=== PATIENT | female | born 1960 | race Hispanic/Latino ===

== ENCOUNTER 2022-12-05 10:16 | Emergency (ER) | payer OTHER ==
[~2022-12-05] VITALS: Ht 165.1 cm; Wt 85.7 kg
[2022-12-05 10:44] VITALS: BP 118/73; PULSE 64; RESP 20
[2022-12-05] MEDS ORDERED: FAMOTIDINE 20MG TAB PO ONE (13:30)
[2022-12-05] MEDS ORDERED: PREDNISONE 20 MG TABLET PO ONE (13:30)
[2022-12-05] MEDS ORDERED: IBUPROFEN 600 MG TABLET PO ONE (13:30)
== END 2022-12-05 14:23 | disposition home or self-care (01) ==
LOC: EDH 10:16
DX: S16.1XXA Strain of muscle, fascia and tendon at neck level, initial encounter (principal); E78.00 Pure hypercholesterolemia, unspecified; F41.9 Anxiety disorder, unspecified; Z90.49 Acquired absence of other specified parts of digestive tract; V89.2XXA Person injured in unspecified motor-vehicle accident, traffic, initial encounter; Y93.89 Activity, other specified; Y92.89 Other specified places as the place of occurrence of the external cause; Y99.8 Other external cause status
CPT/HCPCS: 72040; 72100; 73030; 73060

== ENCOUNTER 2024-04-26 16:19 | Inpatient (IN) | payer BC, OTHER ==
[~2024-04-26] VITALS: Ht 165.1 cm; Wt 80.1 kg
--- NOTE | 2024-04-26 16:51 | EKG ---
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
--- NOTE | 2024-04-26 17:00 | ERN ---
ED Note History of Present Illness Stated Complaint: DIARRHEA Chief Complaint: Abdominal Pain Time Seen by MD: 16:20 Time Seen by Midlevel: 16:20 Dictation: The patient is a 64-year-old female with a history of hyperlipidemia, depression, diabetes who presents to the emergency department with complaints of upper abdominal pain, nonbloody diarrhea times 17 times, nonbloody vomiting x2, chills, fevers onset last night. Patient denies any urinary discomfort. Denies any upper respiratory symptoms. Allergies: Coded Allergies: No Known Allergies (Unverified Allergy, Unknown, 12/05/22) Home Meds Reported Medications Sertraline HCl (Sertraline HCl) 100 Mg Tablet, 1 TAB PO HS for 30 Days, #30 TAB 0 Refills 04/26/24 Metformin HCl (Metformin HCl) 500 Mg Tablet, 1 TAB PO DAILY for 30 Days, #60 TAB 0 Refills 04/26/24 Atorvastatin Calcium (Atorvastatin Calcium) 20 Mg Tablet, 1 TAB PO DAILY for 30 Days, #30 TAB 0 Refills 04/26/24 Past Medical History Past Medical History: Depression, Diabetes-Type II, High Cholesterol, H ypertension Surgical History: Appendectomy, Hysterectomy, Cholecystectomy, Family History: Negative Social History: Negative, Lives with family History: Not Applicable RN Note Reviewed/Agreed w/PFSH: Yes Review of System Dictation Constitutional: Negative for fever,chills, and weight loss Eyes: Negative for injury, pain,redness, and discharge ENT: Negative for injury,pain or swelling Cardiovascular: Negative for chest pain, palpitations, and edema Respiratory: Negative for shortness of breath, cough, and wheezing, Abdomen/GI: Negative for and constipation positive for abdominal pain, nausea, vomiting, diarrhea, Back: Negative for injury and pain : Negative for injury, bleeding and discharge MS/Extremity: Negative for injury and deformity Skin: Negative for rash, and discoloration Neuro: Negative for headache, weakness, numbness, tingling, and seizure Psych: Negative for suicide ideation, homicidal ideation, and hallucinations Initial Vital Sign VS Vital Signs Date Time Temp Pulse Resp B/P (MAP) Pulse Ox O2 Delivery O2 Flow Rate FiO2 04/26/24 16:30 99.0 134 20 134/58 99 Room Air 0 04/26/24 17:08 21 Physical Exam Dictation Vital Signs reviewed General Appearance: Alert, oriented x 3, no acute distress, well developed, nourished. Head and Face: non-traumatic. Eyes: PERRL, pink conjunctivas, eyelid no trauma, anterior chamber with arcus senilis. Ears: Pinnas intact and no signs of trauma or erythema ear canals clear and no discharge TM no erythema Nose: No discharge, no bleeding. Oropharynx: Mouth normal, tongue pink. pharynx clear,no erythema, tonsils no exudates, no abscesses noted, mucous membrane moist Neck: Supple, non-tender, no thyromegaly, no masses, no JVD, no bruits Breast:Deferred Chest:No tenderness, no crepitus, no paradoxical movement, no retractions Lungs:Clear, well-ventilated, symmetric, no rales, no wheezing, no rhonchi, no stridor, good breath sounds bilaterally Heart: Regular rate, regular rhythm, no murmur, no gallops Vascular: no peripheral edema, Abdomen: Soft, positive bowel sounds, nondistended, no guarding, Upper abdominal tenderness, no rebound, no masses no hepatomegaly, no splenomegaly, no Hurt's sign, no hernias. Rectal: Deferred Genital: Deferred Neurological: Normal speech, motor function intact, sensory function intact Musculoskeletal: Neck nontender, full range of motion, back nontender, full range of motion, Extremities: nontender, full range of motion Skin: Color pink, dry, no turgor, no rash, no lacerations, no abrasions, no contusions. Lymphatic: Deferred Results (Laboratory/Radiology) Laboratory/Radiology Laboratory Tests Test 04/26/24 16:58 04/26/24 17:02 Urine Color YELLOW (YELLOW) Urine Appearance CLOUDY (CLEAR) H Urine pH 5.5 (5.0-8.0) Urine Specific [place] 1.024 (1.001-1.031) Urine Protein 20 mg/dL (NEGATIVE) H Urine Glucose (UA) NEGATIVE mg/dL (NEGATIVE) Urine Ketones NEGATIVE mg/dL (NEGATIVE) Urine Occult Blood NEGATIVE (NEGATIVE) Urine Nitrate 2+ (NEGATIVE) H Urine Bilirubin NEGATIVE mg/dL (NEGATIVE) Urine Urobilinogen 0.2 mg/dL (0.2-1.0) Urine Leukocyte Esterase 250 [place]/uL (NEGATIVE) H Urine RBC 6-10 /HPF (0-1) H Urine WBC 26-50 /HPF (0-1) H Urine Squamous Epithelial Cells MOD /HPF (0-2) Urine Other Crystals (Auto) 1 /HPF (None Seen) Urine Bacteria MANY /HPF (None Seen) Urine Hyaline Casts 6-10 /LPF (0-1 /LPF) H White Blood Count 11.8 K/uL (4.8-10.8) H Red Blood Count 5.44 MIL/uL (4.00-5.50) Hemoglobin 16.1 g/dL (12.0-16.0) H Hematocrit 49.0 % (36-48) H Mean Corpuscular Volume 90.1 fL (79-99) Mean Corpuscular Hemoglobin 29.6 pg (27.0-33.0) Mean Corpuscular Hemoglobin Concent 32.9 g/dL (32.0-36.0) Red Cell Distribution Width 13.2 % (11.0-15.5) Platelet Count 229 K/uL (130-400) Mean Platelet Volume 11.8 fL (7.5-10.5) H Immature Granulocyte % (Auto) 0.8 % (0-1) Neutrophils (%) (Auto) 83.2 % (40.0-77.0) H Lymphocytes (%) (Auto) 11.5 % (21.0-51.0) L Monocytes (%) (Auto) 3.4 % (3.0-13.0) Eosinophils (%) (Auto) 0.8 % (0.0-8.0) Basophils (%) (Auto) 0.3 % (0.0-5.0) Neutrophils # (Auto) 9.8 K/uL (1.8-7.7) H Lymphocytes # (Auto) 1.4 K/uL (1.0-4.8) Monocytes # (Auto) 0.4 K/uL (0.1-1.0) Eosinophils # (Auto) 0.10 K/uL (0.00-0.70) Basophils # (Auto) 0.03 K/uL (0.00-0.20) Absolute Immature Granulocyte (auto 0.09 K/uL (0-1) Nucleated Red Blood Cells 0.0 % (0.0-0.19) Sodium Level 136 mmol/L (136-145) Potassium Level 3.8 mmol/L (3.5-5.1) Chloride Level 100 mmol/L (101-111) L Carbon Dioxide Level 24 mmol/L (21-32) Blood Urea Nitrogen 21 mg/dL (7-18) H Creatinine 1.2 mg/dL (0.5-1.0) H Glomerular Filtration Rate Calc 51 mL/min (>90) Random Glucose 158 mg/dL (70-105) H Total Calcium 9.1 mg/dL (8.5-10.1) Magnesium Level 1.70 mg/dL (1.80-2.40) L Total Bilirubin 1.1 mg/dL (0.2-1.0) H Direct Bilirubin 0.2 mg/dL (0.0-0.3) Aspartate Amino Transf (AST/SGOT) 34 U/L (10-37) Alanine Aminotransferase (ALT/SGPT) 82 U/L (12-78) H Alkaline Phosphatase 132 U/L (50-136) Total Creatine Kinase 53 U/L (21-232) Troponin I High Sensitivity 12.4 ng/L (4-50) Total Protein 8.3 g/dL (6.0-8.3) Albumin 4.3 g/dL (3.5-5.0) Lipase 18 U/L (16-77) REASON: upper abd pain, vomiting diarrhea ORDERING PHYSICIAN: PEG HARRIS PROCEDURE: ABD PEL WO - CT ABDOMEN/PELVIS W/O CONTRAST CT ABDOMEN WITHOUT CONTRAST. CT PELVIS WITHOUT CONTRAST. INDICATION: Upper abdominal pain with vomiting and diarrhea TECHNIQUE: Routine transaxial imaging using 5 mm slice thickness through the abdomen and pelvis without the administration of IV contrast. Thin slice reconstructions are also provided. Coronal and sagittal reformatted images acquired for interpretation. CT was performed with one or more of the following dose reduction techniques: Automated exposure control, adjustment of the mA and/or kV according to patient size, or use of iterative reconstruction technique. COMPARISON: None FINDINGS: ON NONCONTRAST IMAGING: ABDOMEN: Heart size is normal. Visible lung bases are clear. No abnormal renal calcifications, hydronephrosis, perinephric inflammation, or proximal hydroureter detected. The liver is enlarged and smooth in contour without biliary duct dilation. Diffuse low attenuation of the liver parenchyma suggests fatty change. The spleen is normal in size and attenuation. The gallbladder is absent. The pancreas appears normal without pancreatic duct dilation. The adrenal glands appear normal. No significant abdominal, retrocrural or retroperitoneal adenopathy noted. No evidence for intra-abdominal free air or organized fluid collection. No aortic aneurysmal dilation identified. PELVIS: No abnormal calcifications within the urinary bladder or distal ureters. No evidence for free air or organized pelvic fluid collection. No significant pelvic adenopathy detected. Several diverticula along the distal colon. Extensive small and large bowel liquid contents. Terminal ileum appears unremarkable. The appendix is absent. Uterus is absent. Visible osseous structures are intact. IMPRESSION: Probable mild enterocolitis with extensive small and large bowel liquid contents. Distal colonic diverticulosis. Enlarged fatty liver. Labs Reviewed?: Yes EKG: (+) rhythm (Sinus tachycardia) EKG Comment: Date:04/26/2024 Time:1644 Ventricular rate:118 TN interval:148 QRS duration:67 QT/QTc:303 EKG interpretation: Sinus tachycardia Reviewed by ED Attending no STEMI ED Course ED Course Orders Procedure Category Date Status Time Cbc With Differential LAB 04/26/24 Complete 16:43 Urinalysis Profile LAB 04/26/24 Complete 16:43 0.9%Nacl 1000ml (Ns PHA 04/26/24 Complete 1000ml) 17:00 Morphine 4mg Syg PHA 04/26/24 Complete (Morphine 4mg Syg) 17:00 Ondansetron 4mg Inj PHA 04/26/24 Complete (Zofran 4mg Inj) 17:00 Pantoprazole 40mg Inj PHA 04/26/24 Complete (Protonix 40mg Inj 17:00 Lipase LAB 04/26/24 Complete 16:43 Basic Metabolic Panel LAB 04/26/24 Complete 16:43 Hepatic Function Panel LAB 04/26/24 Complete 16:43 12 Lead Ekg Tracing- EKG 04/26/24 Complete Technical 16:43 Cardiac Panel LAB 04/26/24 Complete 16:43 Magnesium LAB 04/26/24 Complete 16:43 Ct Abdomen/Pelvis W/O CT 04/26/24 Resulted Contrast 17:52 Magnesium Oxide PHA 04/26/24 Complete (Mag-Ox) 18:00 Culture Urine WALLY 04/26/24 In Process 17:56 Ceftriaxone 1g Vial PHA 04/26/24 In Process (Rocephine 1g Inj) 18:30 Ondansetron 4mg Inj PHA 04/26/24 In Process (Zofran 4mg Inj) 19:30 Edm Admit Bridge Order ADM 04/26/24 Transmitted 20:27 Admit Orders ADM 04/26/24 Transmitted 20:53 Admit Orders ADM 04/26/24 Transmitted 21:03 Keep Patient Npo CPOE 04/26/24 Transmitted 21:43 Basic Metabolic Panel LAB 04/27/24 Verified 04:00 Cbc With Differential LAB 04/27/24 Verified 04:00 Magnesium LAB 04/27/24 Verified 04:00 Phosphorus LAB 04/27/24 Verified 04:00 Culture Urine WALLY 04/26/24 Logged 21:43 Activity: Ad Rosalinda CPOE 04/26/24 Transmitted 21:43 Apply Knee High Teds CPOE 04/26/24 Transmitted 21:43 Apply Scds CPOE 04/26/24 Transmitted 21:43 Condition: CPOE 04/26/24 Transmitted 21:43 Daily Weights CPOE 04/26/24 Transmitted 21:43 I&O Q Shift CPOE 04/26/24 Transmitted 21:43 Nurse To Enter Home CPOE 04/26/24 Transmitted Medication 21:43 Oxygen By Nc/Pulse Ox CPOE 04/26/24 Transmitted 21:43 Vital Signs(Adult CPOE 04/26/24 Transmitted Hospitalist) 21:43 Urine Creatinine LAB 04/26/24 Logged Random 21:43 Urine Sodium,Random LAB 04/26/24 Logged 21:43 Osmolality Urine LAB 04/26/24 Logged 21:43 Acetaminophen 325 Tab PHA 04/26/24 In Process (Tylenol 325mg Tab 22:00 Heparin 5,000 Unit PHA 04/27/24 In Process Vial (Heparin 5,000 U 09:00 Hydralazine 20mg Inj PHA 04/26/24 In Process (Apresoline 20mg In 22:00 Lactated Ringers PHA 04/26/24 In Process 1000ml (Lactated 22:00 Pantoprazole 40mg Inj PHA 04/27/24 In Process (Protonix 40mg Inj 09:00 Acetaminophen 650mg PHA 04/26/24 In Process Supp (Tylenol 650mg 22:00 Stool Panel Gi By Pcr LAB 04/26/24 Logged 21:43 Magnesium 2gm Premix PHA 04/26/24 In Process 50ml (Magnesium 2gm 22:00 Morphine 2mg Syg PHA 04/26/24 In Process (Morphine 2mg Syg) 22:00 Current Medications Medications (Trade) Dose Ordered Sig/Jj Route PRN Reason Start Time Stop Time Status Last Admin Dose Admin Ceftriaxone Sodium (ROCEphine 1G INJ) 1 gm ONCE IVPB 04/26/24 18:30 04/26/24 22:30 04/26/24 19:21 Magnesium Oxide (Mag-Ox) 400 mg ONCE PO 04/26/24 18:00 04/26/24 22:00 DC 04/26/24 19:21 Morphine Sulfate (morPHINE 4MG SYG) 4 mg ONCE IVP 04/26/24 17:00 04/26/24 21:00 DC 04/26/24 17:36 Ondansetron HCl (zoFRAN 4MG INJ) 4 mg ONCE IVP 04/26/24 17:00 04/26/24 21:00 DC 04/26/24 17:36 Ondansetron HCl (zoFRAN 4MG INJ) 4 mg ONCE IVP 04/26/24 19:30 04/26/24 22:30 04/26/24 19:37 Pantoprazole Sodium (PROTonix 40MG INJ) 40 mg ONCE IVP 04/26/24 17:00 04/26/24 21:00 DC 04/26/24 17:36 Sodium Chloride 1,000 ml @ 0 mls/hr ONCE IV 04/26/24 17:00 04/26/24 21:00 DC 04/26/24 17:36 Vital Signs Date Time Temp Pulse Resp B/P (MAP) Pulse Ox O2 Delivery O2 Flow Rate FiO2 04/26/24 17:08 99.0 130 16 130/56 98 Room Air* 0 21 04/26/24 16:30 99.0 134 20 134/58 99 Room Air 0 Medical Decision Making MDM MDM: The patient is a 64-year-old female with a history of hyperlipidemia, depression, diabetes who presents to the emergency department with complaints of upper abdominal pain, nonbloody diarrhea times 17 times, nonbloody vomiting x2, chills, fevers onset last night. Patient denies any urinary discomfort. Denies any upper respiratory symptoms. CBC showed mild leukocytosis, no anemia, chemistry showed hypochloremia, GFR 54, hypomagnesemia, negative lipase, urinalysis positive for UTI. Patient treated antibiotics. CT abdomen showed mild enterocolitis, patient continues with a nausea and vomiting and diarrhea. We will be admitted for urinary tract infecti on in hydration. Differential diagnosis: Gastroenteritis, dehydration, electrolyte imbalance, diverticulitis, bowel obstruction Comorbidities: Hyperlipidemia, diabetes, appendectomy, cholecystectomy Tests considered and not ordered secondary to shared decision making include: none Previous outside records reviewed: none Risk of complication and/or morbidity or mortality of patient management: The patient meets criteria for admission. Need for emergency major/minor surgery: No There are no social concerns with this patient. I independently interpreted the tests I ordered (labs, urinalysis, etc.). I discussed the case with the hospitalist for admission.Femi CONNOR who accepts admission I discussed the case with the following specialists: none. Historian: pateint. I independently interpreted imaging studies and EKGs that I ordered (US, CT, XR, EKG, etc.). External chart review: none. Medical management and examination interpretation discussions were had by me with other qualified healthcare professionals as indicated for the patient's care. DX & DISP Disposition: Inpatient Decision to Admit Date: Apr 26, 2024 Decision to Admit Time: 20:53 Departure Impression: Primary Impression: Enterocolitis Additional Impressions: UTI (urinary tract infection), Dehydration, Acute kidney injury, Nausea and vomiting, Diarrhea, Hypomagnesemia Condition: Stable Referrals: TIEN CHONG MD (PCP) I have reviewed the case, and I agree with, Diagnosis and Plan PEG HARRISP Apr 26, 2024 17:00
[2024-04-26 17:27] LABS: BASOPHILS # (AUTO) 0.03 K/uL (0.00-0.20); BASOPHILS % (AUTO) 0.3 % (0.0-5.0); EOSINOPHILS % (AUTO) 0.8 % (0.0-8.0); IMMATURE GRANULOCYTE ABSOLUTE 0.09 K/uL (0-1); LYMPHOCYTES # (AUTO) 1.4 K/uL (1.0-4.8); LYMPHOCYTES % (AUTO) 11.5 % (21.0-51.0); MEAN CORPUSCULAR HEMOGLOBIN 29.6 pg (27.0-33.0); MEAN CORPUSCULAR HGB CONC 32.9 g/dL (32.0-36.0); MEAN CORPUSCULAR VOLUME 90.1 fL (79-99); MONOCYTES # (AUTO) 0.4 K/uL (0.1-1.0); MONOCYTES % (AUTO) 3.4 % (3.0-13.0); NEUTROPHILS # (AUTO) 9.8 K/uL (1.8-7.7); NEUTROPHILS % (AUTO) 83.2 % (40.0-77.0); PLATELET COUNT (AUTO) 229 K/uL (130-400); RED BLOOD CELL COUNT(AUTO) 5.44 MIL/uL (4.00-5.50); RED CELL DISTRIBUTION WIDTH 13.2 % (11.0-15.5); WHITE BLOOD COUNT (AUTO) 11.8 K/uL (4.8-10.8)
[2024-04-26] MEDS: 0.9%NACL 1000ML 1,000 ML IV SCH (17:36)
[2024-04-26] MEDS: PANTOPrazole 40 MG/VIAL IVP SCH (17:36)
[2024-04-26] MEDS: morPHINE 4 MG SYG IVP SCH (17:36)
[2024-04-26] MEDS: ondanSETRON 4MG INJ IVP SCH ×2 (17:36→19:37)
[2024-04-26 17:40] LABS: CREATININE 1.2 mg/dL (0.5-1.0); POTASSIUM 3.8 mmol/L (3.5-5.1)
[2024-04-26 17:47] LABS: ALBUMIN 4.3 g/dL (3.5-5.0); BILIRUBIN,DIRECT 0.2 mg/dL (0.0-0.3); BILIRUBIN,TOTAL 1.1 mg/dL (0.2-1.0); MAGNESIUM 1.7 mg/dL (1.80-2.40); TOTAL PROTEIN, SERUM 8.3 g/dL (6.0-8.3)
[2024-04-26 17:52] LABS: APPEARANCE,URINE CLOUDY (CLEAR); BILIRUBIN,URINE NEGATIVE (NEGATIVE); COLOR,URINE YELLOW (YELLOW); GLUCOSE, URINE (UA) NEGATIVE (NEGATIVE); KETONES,URINE NEGATIVE (NEGATIVE); LEUKOCYTE ESTERASE ,URINE 250 Leu/uL (NEGATIVE); NITRATE,URINE 2+ (NEGATIVE); OCCULT BLOOD,URINE NEGATIVE (NEGATIVE); PH,URINE 5.5 (5.0-8.0); PROTEIN,URINE 20 mg/dL (NEGATIVE); UROBILINOGEN,URINE 0.2 mg/dL (0.2-1.0)
[2024-04-26 17:55] LABS: ADD UA MICROSCOPIC YES
[2024-04-26 18:02] LABS: BACTERIA,URINE MANY /HPF (None Seen); MUCUS,URINE MOD LPF (None Seen); SQUAMOUS EPITHELIAL CELL,UR MOD /HPF (0-2); UNCLASSIFIED CRYSTAL 1 /HPF (None Seen); WBC,URINE 26-50 /HPF (0-1)
--- NOTE | 2024-04-26 18:42 | HMCIMG ---
CT ABDOMEN WITHOUT CONTRAST. CT PELVIS WITHOUT CONTRAST. INDICATION: Upper abdominal pain with vomiting and diarrhea TECHNIQUE: Routine transaxial imaging using 5 mm slice thickness through the abdomen and pelvis without the administration of IV contrast. Thin slice reconstructions are also provided. Coronal and sagittal reformatted images acquired for interpretation. CT was performed with one or more of the following dose reduction techniques: Automated exposure control, adjustment of the mA and/or kV according to patient size, or use of iterative reconstruction technique. COMPARISON: None FINDINGS: ON NONCONTRAST IMAGING: ABDOMEN: Heart size is normal. Visible lung bases are clear. No abnormal renal calcifications, hydronephrosis, perinephric inflammation, or proximal hydroureter detected. The liver is enlarged and smooth in contour without biliary duct dilation. Diffuse low attenuation of the liver parenchyma suggests fatty change. The spleen is normal in size and attenuation. The gallbladder is absent. The pancreas appears normal without pancreatic duct dilation. The adrenal glands appear normal. No significant abdominal, retrocrural or retroperitoneal adenopathy noted. No evidence for intra-abdominal free air or organized fluid collection. No aortic aneurysmal dilation identified. PELVIS: No abnormal calcifications within the urinary bladder or distal ureters. No evidence for free air or organized pelvic fluid collection. No significant pelvic adenopathy detected. Several diverticula along the distal colon. Extensive small and large bowel liquid contents. Terminal ileum appears unremarkable. The appendix is absent. Uterus is absent. Visible osseous structures are intact. IMPRESSION: Probable mild enterocolitis with extensive small and large bowel liquid contents. Distal colonic diverticulosis. Enlarged fatty liver.
[2024-04-26] MEDS: cefTRIAXone 1G VIAL IVPB SCH (19:21)
[2024-04-26] MEDS: MAGNESIUM OXIDE 400 MG TABLET PO SCH (19:21)
--- NOTE | 2024-04-26 20:24 | NUR ---
PATIENT GIVEN WATER PO CHALLENGE, TOLERATED WELL
[2024-04-26] MEDS ORDERED: ATOR20TA65 PO (21:01)
[2024-04-26] MEDS ORDERED: METF-444 PO (21:01)
[2024-04-26] MEDS ORDERED: SERT-440 PO (21:01)
--- NOTE | 2024-04-26 21:06 | HP ---
History of Present Illness Reason for Visit: diarrhea History of Present Illness Ms. Howard is a 64-year-old female that was seen and examined today on 04/26/2024. Patient is a good historian of personal health Patient states that she came to the emergency department with a chief complaint of diarrhea. Onset was today at 6:00 a.m.. Location is to rectum. Duration is on and off. Character is described as watery. Patient reports 22 episodes of d iarrhea. There was no alleviating factors. Symptoms are aggravated with eating and drinking. Patient reports associated nausea and vomiting x2 episodes. Today in the emergency department CBC unremarkable, magnesium 1.7, creatinine 1.2, BUN 21, urinalysis positive for leukocyte esterase, WBCs 20 6-50 per high- powered microscopy field. CT suggestive of enterocolitis. Past Medical History ADDITIONAL PAST MEDICAL HISTORY: [Denies] SOCIAL HISTORY: [Negative for smoking, alcohol use, drug use. Patient lives alone. Patient is typically independent of all her ADLs. Patient has good access to health care through her insurance. Patient is currently unemployed. Patient denies difficulty pain her bills.] SURGICAL HISTORY: [Cholecystectomy, appendectomy, hysterectomy, section x1,] Review of Systems General: No Fever, No Chills, No Night Sweats, No Fatigue, No Malaise, No Appetite, No Other HEENT: No Head Aches, No Visual Changes, No Eye Pain, No Ear Pain, No Dysphasia, No Sinus Congestion, No Post Nasal Drip, No Sore Throat, No Other Pulmonary: No Dyspnea, No Cough, No Pleuritic Chest Pain, No Other Cardiovascular: No: Chest Pain, Palpitations, Orthopnea, Paroxysmal Noc. Dyspnea, Edema, Lt Headedness, Other Gastrointestinal: Nausea, Vomiting, Diarrhea; No: Abdominal Pain, Constipation, Melena, Hematochezia, Other Genitourinary: No Dysuria, No Frequency, No Incontinence, No Hematuria, No Retention, No Other Musculoskeletal: No: other, neck pain, shoulder pain, arm pain, back pain, hand pain, leg pain, foot pain Skin: No Urticaria, No Rash, No Other Neurological: No: Weakness, Numbness, Incoordination, Change in speech, Confusion, Seizures, Other Allergies: Coded Allergies: No Known Allergies (Unverified Allergy, Unknown, 12/05/22) Scheduled Atorvastatin Calcium (Atorvastatin Calcium), 1 TAB PO DAILY, (Reported) Metformin HCl (Metformin HCl), 1 TAB PO DAILY, (Reported) Sertraline HCl (Sertraline HCl), 1 TAB PO HS, (Reported) Exam Vital Signs Vital Signs Date Time Temp Pulse Resp B/P (MAP) Pulse Ox O2 Delivery O2 Flow Rate FiO2 04/26/24 17:08 99.0 130 16 130/56 98 Room Air* 0 21 General Appearance: Alert, Oriented X3, Cooperative, No acute distress HEENT: Atraumatic, EOMI Respiratory: Clear to auscultation, Normal air movement, NL respiratory effort Cardiovascular: Regular rate, Regular rhythm, Normal S1, Normal S2 Abdominal: Normal bowel sounds, Soft, No tenderness Extremities: No edema Skin: No significant lesion Neuro: Normal speech, Strength at 5/5 X4 ext, Sensation intact, Cranial nerves 3-12 NL Psych/Mental Status: Mental status NL, Mood NL, Thoughts/Content NL Assessment/Plan ASSESSMENT: [ Enterocolitis, POA, by CT on 04/26/2024 Urinary tract infection, POA Hypomagnesemia, POA PEPE versus CKD, POA PLAN: [ Admit patient to medical floor as inpatient status. Keep patient NPO. Consider advancing diet tomorrow once patient is no longer nauseated. As-needed antiemetic, Zofran. IV fluid maintenance therapy lactated Ringer's at 125 mL/HR Check urine culture, follow up with the results Empiric antibiotic therapy with Rocephin Replace magnesium per hospital protocol Calculate FENA Check urine sodium, creatinine, osmolality Avoid nephrotoxic agents when possible Renally dose all medications when possible Consider consulting Nephrology service if any worsening renal function or evidence of ATN. Monitor patient's labs. Weight patient daily. Monitor intake and output. GI prophylaxis, Protonix DVT prophylaxis, heparin ADVANCED CARE PLANNING 1. Which of the following were discussed? Hospice Care - Yes Therapeutic options - Yes Advance Directives - Yes -patient states he does not have any advance directives in place at this time, however patient states her daughter Laurie can make decisions for her if she becomes unable. Other discussions - patient wishes to remain a full code at this time 2. Discussed with who? Patient 3. Voluntary nature of this service was explained to the patient? Yes 4. Amount of time spent - ___ 16 minutes ____ 5. Reviewed by Physician? (if this service was performed by NPP) Yes This document was generated in part using voice recognition software, occasional wrong word or sound alike substitutions may have occurred due to the inherent limitations of voice recognition software. Read the chart carefully and recognize using context, where the substitutions have occurred. Although every effort was made to edit the content, body line finisher and typing errors may occur ATTESTATION BY PHYSICIAN I have seen and examined the patient. I reviewed the documentation, medical decision making, and treatment plan as noted by the mid-level provider above. I agree with the findings and plan of care. [facility] Apr 26, 2024 21:06
[2024-04-26] MEDS ORDERED: hydrALAZine 20MG/ML VIAL IV PRN (22:00)
[2024-04-26] MEDS ORDERED: acetaMINOPHEN 325 MG TAB PO PRN (22:00)
[2024-04-26] MEDS ORDERED: acetaMINOPHEN 650 MG SUPPOSITORY RC PRN (22:00)
[2024-04-26] MEDS ORDERED: morPHINE 2 MG SYG IVP PRN (22:00)
[2024-04-26] MEDS: LACTATED RINGERS 1000ML 1,000 ML IV SCH (22:01)
[2024-04-26 22:34] LABS: CREATININE,URINE RANDOM 227.83 mg/dL (30-135)
[2024-04-26 23:00] VITALS: BP 122/56; PULSE 99; RESP 18; TEMP 98.5
--- NOTE | 2024-04-26 23:29 | NUR ---
REPORT GIVEN TO NURSE KASPER
[2024-04-26 23:50] VITALS: BP 115/53; PULSE 70; RESP 20; TEMP 98
[2024-04-27 04:00] VITALS: BP 112/52; PULSE 68; RESP 20; TEMP 98.3
[2024-04-27 08:00] VITALS: O2SAT 99
[2024-04-27 08:06] VITALS: BP 111/54; PULSE 78; RESP 18; TEMP 98.3
[2024-04-27 08:19] LABS: BASOPHILS # (AUTO) 0.01 K/uL (0.00-0.20); BASOPHILS % (AUTO) 0.2 % (0.0-5.0); EOSINOPHILS % (AUTO) 1.6 % (0.0-8.0); HEMATOCRIT 40.9 % (36-48); IMMATURE GRANULOCYTE ABSOLUTE 0.04 K/uL (0-1); MEAN CORPUSCULAR HEMOGLOBIN 29.2 pg (27.0-33.0); MEAN CORPUSCULAR HGB CONC 32.5 g/dL (32.0-36.0); MEAN CORPUSCULAR VOLUME 89.9 fL (79-99); MONOCYTES # (AUTO) 0.3 K/uL (0.1-1.0); MONOCYTES % (AUTO) 5.1 % (3.0-13.0); NEUTROPHILS # (AUTO) 4.9 K/uL (1.8-7.7); NEUTROPHILS % (AUTO) 76.5 % (40.0-77.0); PLATELET COUNT (AUTO) 141 K/uL (130-400); RED BLOOD CELL COUNT(AUTO) 4.55 MIL/uL (4.00-5.50); RED CELL DISTRIBUTION WIDTH 13.2 % (11.0-15.5); WHITE BLOOD COUNT (AUTO) 6.4 K/uL (4.8-10.8)
[2024-04-27 08:49] LABS: CREATININE 1.1 mg/dL (0.5-1.0); MAGNESIUM 1.9 mg/dL (1.80-2.40); POTASSIUM 4.3 mmol/L (3.5-5.1)
--- NOTE | 2024-04-27 09:13 | PN ---
[facility] PROGRESS NOTE Date of Service: Apr 27, 2024 Time of Service: 09:06 SUBJECTIVE: [ ] This is a 64-year-old female that presents in ER with chief complaints of diarrhea was admitted on 04/26/2024. This morning she reports she continues we will collect stool PCR. No fevers no chills continues on IV fluids. REVIEW OF SYSTEMS CONSTITUTIONAL: Denies fevers, chills, or night sweats. No unintentional weight loss reported. NEUROLOGICAL: Denies headache, amaurosis fugax, motor weakness, sensory deficit, vertigo/spinning sensation, gait abnormalities, or tremors. ENT: No hearing loss, otalgia, otorrhea, rhinitis, rhinorrhea, hoarseness, or sore throat. CARDIOVASCULAR: Denies any exertional angina, dyspnea on exertion, orthopnea, paroxysmal nocturnal dyspnea, palpitations, life-threatening arrhythmias, claudication. PULMONARY: Denies any shortness of breath, cough, phlegm/sputum, hemoptysis, pleuritic chest pain. SLEEP: Denies morning headaches, daytime somnolence or napping. Denies difficulty falling asleep, staying asleep, waking from sleep. Denies knowledge of snoring. GASTROINTESTINAL: Denies any type of dysphagia to either liquids or solids. Denies nausea, vomiting, pyrosis, early satiety, abdominal pain, diarrhea, constipation, or changes in stool consistency or caliber. Denies coffee-ground emesis, hematemesis, hematochezia, or melanotic stools. GENITOURINARY: Denies frequency, urgency, nocturia, hematuria or incontinence (Storage/Irritative symptoms.) Low urinary stream, straining to void, urinary intermittency or hesitancy, splitting of the voiding stream, terminal dribbling. ENDOCRINOLOGIC: Denies polyuria, polydipsia, polyphagia or heat/cold intolerances. HEMATOLOGIC: Denies thrombophilia/previous clots, or coagulopathy/bleeding disorders. ONCOLOGIC: Denies personal history of malignancy. DERMATOLOGIC: Denies rashes or pruritus. PSYCHIATRIC: Denies any suicidal or homicidal ideation. Denies hallucinations. PHYSICAL EXAM GENERAL APPEARANCE: The patient is awake, alert, and oriented, in no acute cardiopulmonary distress. NEUROLOGICAL: Cranial nerves II-XII grossly intact. Motor is 5/5 in bilateral upper and lower extremities proximal to distal. No sensory deficits. HEENT: Face is symmetric. Pupils are equal and reactive. Extraocular movements are intact. NECK: Supple. No JVD. No thyromegaly. No submental, submandibular, pre-/postauricular, occipital or supraclavicular lymphadenopathy. CHEST: Normal chest expansion. No Telemetry. LUNGS: Absence of any rales, rhonchi or any wheezing. CARDIOVASCULAR: Regular. S1 and S2 normal. No appreciable rubs, murmurs or gallops. ABDOMEN: Soft, nontender, and nondistended. There is no rebound, voluntary guarding, or rigidity. : Deferred. No Traore. EXTREMITIES: Non-edematous and not cyanotic. No clubbing. Good capillary refill. SKIN: No skin breakdown. Vital Signs (last 8hr) Date Time Temp Pulse Resp B/P (MAP) Pulse Ox O2 Delivery O2 Flow Rate FiO2 04/27/24 08:06 98.2 78 18 111/54 98 Room Air 04/27/24 04:00 98.2 68 20 112/52 98 Nasal Cannula LABS: Laboratory: Test 04/27/24 08:03 04/26/24 17:02 04/26/24 16:58 Range/Units White Blood Count 6.4 # 4.8-10.8 K/uL Red Blood Count 4.55 4.00-5.50 MIL/uL Hemoglobin 13.3 12.0-16.0 g/dL Hematocrit 40.9 36-48 % Mean Corpuscular Volume 89.9 79-99 fL Mean Corpuscular Hemoglobin 29.2 27.0-33.0 pg Mean Corpuscular Hemoglobin Concent 32.5 32.0-36.0 g/dL Red Cell Distribution Width 13.2 11.0-15.5 % Platelet Count 141 # 130-400 K/uL Mean Platelet Volume 12.0 H 7.5-10.5 fL Immature Granulocyte % (Auto) 0.6 0-1 % Neutrophils (%) (Auto) 76.5 40.0-77.0 % Lymphocytes (%) (Auto) 16.0 L 21.0-51.0 % Monocytes (%) (Auto) 5.1 3.0-13.0 % Eosinophils (%) (Auto) 1.6 0.0-8.0 % Basophils (%) (Auto) 0.2 0.0-5.0 % Neutrophils # (Auto) 4.9 1.8-7.7 K/uL Lymphocytes # (Auto) 1.0 1.0-4.8 K/uL Monocytes # (Auto) 0.3 0.1-1.0 K/uL Eosinophils # (Auto) 0.10 0.00-0.70 K/uL Basophils # (Auto) 0.01 0.00-0.20 K/uL Absolute Immature Granulocyte (auto 0.04 0-1 K/uL Nucleated Red Blood Cells 0.0 0.0-0.19 % Sodium Level 136 136-145 mmol/L Potassium Level 4.3 3.5-5.1 mmol/L Chloride Level 105 101-111 mmol/L Carbon Dioxide Level 27 21-32 mmol/L Blood Urea Nitrogen 23 H 7-18 mg/dL Creatinine 1.1 H 0.5-1.0 mg/dL Glomerular Filtration Rate Calc 56 >90 mL/min Random Glucose 139 H 70-105 mg/dL Total Calcium 8.5 8.5-10.1 mg/dL Phosphorus Level 3.0 2.5-4.9 mg/dL Magnesium Level 1.90 1.80-2.40 mg/dL Total Bilirubin 1.1 H 0.2-1.0 mg/dL Direct Bilirubin 0.2 0.0-0.3 mg/dL Aspartate Amino Transf (AST/SGOT) 34 10-37 U/L Alanine Aminotransferase (ALT/SGPT) 82 H 12-78 U/L Alkaline Phosphatase 132 50-136 U/L Total Creatine Kinase 53 21-232 U/L Troponin I High Sensitivity 12.4 4-50 ng/L Total Protein 8.3 6.0-8.3 g/dL Albumin 4.3 3.5-5.0 g/dL Lipase 18 16-77 U/L Urine Color YELLOW YELLOW Urine Appearance CLOUDY H CLEAR Urine pH 5.5 5.0-8.0 Urine Specific [place] 1.024 1.001-1.031 Urine Protein 20 H NEGATIVE mg/dL Urine Glucose (UA) NEGATIVE NEGATIVE mg/dL Urine Ketones NEGATIVE NEGATIVE mg/dL Urine Occult Blood NEGATIVE NEGATIVE Urine Nitrate 2+ H NEGATIVE Urine Bilirubin NEGATIVE NEGATIVE mg/dL Urine Urobilinogen 0.2 0.2-1.0 mg/dL Urine Leukocyte Esterase 250 H NEGATIVE Kwaku/uL Urine RBC 6-10 H 0-1 /HPF Urine WBC 26-50 H 0-1 /HPF Urine Squamous Epithelial Cells MOD 0-2 /HPF Urine Other Crystals (Auto) 1 None Seen /HPF Urine Bacteria MANY None Seen /HPF Urine Hyaline Casts 6-10 H 0-1 /LPF /LPF Urine Random Creatinine 227.83 H 30-135 mg/dL Urine Random Sodium 86 40-220 mmol/l Current Medications Medications (Trade) Dose Ordered Sig/Jj Route PRN Reason Start Time Stop Time Status Last Admin Dose Admin Acetaminophen (TYLenol 325MG TAB) 650 mg Q6H PRN PO TEMPERATURE GREATER THAN 101.5 04/26/24 22:00 05/26/24 21:59 Acetaminophen (TYLenol 650MG SUPPOSITORY) 650 mg Q6H PRN RC MILD PAIN (1-3) 04/26/24 22:00 05/26/24 21:59 Ceftriaxone Sodium (ROCEphine 1G INJ) 1 gm ONCE IVPB 04/26/24 18:30 04/26/24 22:30 DC 04/26/24 19:21 1 GM Heparin Sodium (Porcine) (HEParin 5,000 UNIT VIAL) 5,000 unit BID SQ 04/27/24 09:00 05/27/24 08:59 Hydralazine HCl (APRESOLine 20MG INJ) 10 mg Q6H PRN IV For:SBP above 160;DBP above 90 04/26/24 22:00 05/26/24 21:59 Lactated Ringer's 1,000 ml @ 125 mls/hr Q8H IV 04/26/24 22:00 05/26/24 21:59 04/26/24 22:01 125 MLS/HR Magnesium Oxide (Mag-Ox) 400 mg ONCE PO 04/26/24 18:00 04/26/24 22:00 DC 04/26/24 19:21 400 MG Magnesium Sulfate 50 ml @ 0 mls/hr PROTOCOL PRN IV h 04/26/24 22:00 05/26/24 21:59 Morphine Sulfate (morPHINE 2MG SYG) 2 mg Q4H PRN IVP SEVERE PAIN (7-10) 04/26/24 22:00 05/03/24 21:59 Morphine Sulfate (morPHINE 4MG SYG) 4 mg ONCE IVP 04/26/24 17:00 04/26/24 21:00 DC 04/26/24 17:36 4 MG Ondansetron HCl (zoFRAN 4MG INJ) 4 mg ONCE IVP 04/26/24 17:00 04/26/24 21:00 DC 04/26/24 17:36 4 MG Ondansetron HCl (zoFRAN 4MG INJ) 4 mg ONCE IVP 04/26/24 19:30 04/26/24 22:30 DC 04/26/24 19:37 4 MG Pantoprazole Sodium (PROTonix 40MG INJ) 40 mg ONCE IVP 04/26/24 17:00 04/26/24 21:00 DC 04/26/24 17:36 40 MG Pantoprazole Sodium (PROTonix 40MG INJ) 40 mg Q24H IV 04/27/24 09:00 05/27/24 08:59 Sodium Chloride 1,000 ml @ 0 mls/hr ONCE IV 04/26/24 17:00 04/26/24 21:00 DC 04/26/24 17:36 1,000 MLS/HR DIAGNOSTICS / RADIOLOGY: [ ] ASSESSMENT: Enterocolitis, POA, by CT on 04/26/2024 Leukocytosis Urinary tract infection, POA Hypomagnesemia, POA PEPE prerenal, POA PLAN: [ ] Admit: Medical floor condition: Fair Status: Full code IVF: LR decrease rate to 75 mL/hour Consultants: None Antibiotics: Rocephin1 g every 24 hours Test: Pending PCR stool ova and parasites and C diff Labs cbc, cmp, mag+ Replace electrolytes as needed as per protocol to keep potassium above 4.0 magnesium 2.0. Home medications pending to be reviewed by RN nurse. PRN: MEDICATIONS Tylenol 650 mg po every 4 hrs for fever zofran 4 mg IV every 6 hrs for n/v Hydralazine 5 mg IV every 4 hrs systolic pressure > 160 Supportive measures: DVT ppx, GI ppx all questions answered Supervising MD: Dr. Dodie Guzman c/d This document was generated in part using voice recognition software, occasional wrong word or sound alike substitutions may have occurred due to the inherent limitations of voice recognition software. Read the chart carefully and recognize using context, where the substitutions have occurred. Although every effort was made to edit the content, computer discovery teacher and typing errors may occur ATTESTATION BY PHYSICIAN I have seen and examined the patient. I reviewed the documentation, medical decision making, and treatment plan as noted by the mid-level provider above. I agree with the findings and plan of care. Nahun Mueller MD, ELIZABETH NP Apr 27, 2024 09:13 NAHUN MUELLER MD Apr 28, 2024 16:11
[2024-04-27] MEDS: cefTRIAXone 1G VIAL IVPB SCH (09:35)
[2024-04-27] MEDS: PANTOPrazole 40 MG/VIAL IV SCH (09:40)
[2024-04-27] MEDS: HEParin 5,000 UNIT VIAL SQ SCH (10:26)
[2024-04-27 11:32] VITALS: BP 114/58; PULSE 80; RESP 17; TEMP 98.2
--- NOTE | 2024-04-27 15:24 | NUR ---
INITIAL Met w pt this afternoon to discuss dcp. Pt admitted w enterocolitis. PCP is Dr Chase Cortes. son Tutu Chapman [phone]. Pt lives at home alone. She is independent w ambulation and ADLs. She does not own any DME or receive services. Her preferred pharmacy is [facility]. She mentions that he sons will provide transportation home. Discharge goal is to return home. Addendum: 04/27/24 at 1527 by ALLYN SOLIS CM Amended: Links added.
[2024-04-27 15:39] VITALS: BP 99/54; PULSE 81; RESP 18; TEMP 98.2
[2024-04-27 20:00] VITALS: BP 112/50; PULSE 68; RESP 20; TEMP 98.1; O2SAT 99
[2024-04-28] VITALS (7 sets, daily range): BP systolic 104–116; BP diastolic 46–62; PULSE 68–75; RESP 18–20; TEMP 97.9–98.4; O2SAT 98
--- NOTE | 2024-04-28 09:32 | PN ---
[facility] PROGRESS NOTE Date of Service: Apr 28, 2024 Time of Service: 09:31 SUBJECTIVE: [ ] This is a 64-year-old female that presents in ER with chief complaints of diarrhea was admitted on 04/26/2024. This morning she reports she continues we will collect stool PCR. No fevers no chills continues on IV fluids. 04/28/2024 diarrhea was negative for C diff. continues with diarrhea we will start her on Imodium. Patient renal function improved urine cultures in process continue with empiric antibiotics patient reports no chest pain or shortness for breath. REVIEW OF SYSTEMS CONSTITUTIONAL: Denies fevers, chills, or night sweats. No unintentional weight loss reported. NEUROLOGICAL: Denies headache, amaurosis fugax, motor weakness, sensory deficit, vertigo/spinning sensation, gait abnormalities, or tremors. ENT: No hearing loss, otalgia, otorrhea, rhinitis, rhinorrhea, hoarseness, or sore throat. CARDIOVASCULAR: Denies any exertional angina, dyspnea on exertion, orthopnea, paroxysmal nocturnal dyspnea, palpitations, life-threatening arrhythmias, claudication. PULMONARY: Denies any shortness of breath, cough, phlegm/sputum, hemoptysis, pleuritic chest pain. SLEEP: Denies morning headaches, daytime somnolence or napping. Denies difficulty falling asleep, staying asleep, waking from sleep. Denies knowledge of snoring. GASTROINTESTINAL: Denies any type of dysphagia to either liquids or solids. Denies nausea, vomiting, pyrosis, early satiety, abdominal pain, diarrhea, constipation, or changes in stool consistency or caliber. Denies coffee-ground emesis, hematemesis, hematochezia, or melanotic stools. GENITOURINARY: Denies frequency, urgency, nocturia, hematuria or incontinence (Storage/Irritative symptoms.) Low urinary stream, straining to void, urinary intermittency or hesitancy, splitting of the voiding stream, terminal dribbling. ENDOCRINOLOGIC: Denies polyuria, polydipsia, polyphagia or heat/cold intolerances. HEMATOLOGIC: Denies thrombophilia/previous clots, or coagulopathy/bleeding disorders. ONCOLOGIC: Denies personal history of malignancy. DERMATOLOGIC: Denies rashes or pruritus. PSYCHIATRIC: Denies any suicidal or homicidal ideation. Denies hallucinations. PHYSICAL EXAM GENERAL APPEARANCE: The patient is awake, alert, and oriented, in no acute cardiopulmonary distress. NEUROLOGICAL: Cranial nerves II-XII grossly intact. Motor is 5/5 in bilateral upper and lower extremities proximal to distal. No sensory deficits. HEENT: Face is symmetric. Pupils are equal and reactive. Extraocular movements are intact. NECK: Supple. No JVD. No thyromegaly. No submental, submandibular, pre- /postauricular, occipital or supraclavicular lymphadenopathy. CHEST: Normal chest expansion. No Telemetry. LUNGS: Absence of any rales, rhonchi or any wheezing. CARDIOVASCULAR: Regular. S1 and S2 normal. No appreciable rubs, murmurs or gallops. ABDOMEN: Soft, nontender, and nondistended. There is no rebound, voluntary guarding, or rigidity. : Deferred. No Traore. EXTREMITIES: Non-edematous and not cyanotic. No clubbing. Good capillary refill. SKIN: No skin breakdown. Vital Signs (last 8hr) Date Time Temp Pulse Resp B/P (MAP) Pulse Ox O2 Delivery O2 Flow Rate FiO2 04/28/24 07:57 97.9 70 18 116/57 94 Room Air 04/28/24 04:00 98.1 75 20 112/46 98 Room Air LABS: Laboratory: Test 04/27/24 11:45 04/27/24 08:03 04/26/24 17:02 04/26/24 16:58 Range/Units C. difficile Antigen and Toxins A,B See comments NEG White Blood Count 6.4 # 4.8-10.8 K/uL Red Blood Count 4.55 4.00-5.50 MIL/uL Hemoglobin 13.3 12.0-16.0 g/dL Hematocrit 40.9 36-48 % Mean Corpuscular Volume 89.9 79-99 fL Mean Corpuscular Hemoglobin 29.2 27.0-33.0 pg Mean Corpuscular Hemoglobin Concent 32.5 32.0-36.0 g/dL Red Cell Distribution Width 13.2 11.0-15.5 % Platelet Count 141 # 130-400 K/uL Mean Platelet Volume 12.0 H 7.5-10.5 fL Immature Granulocyte % (Auto) 0.6 0-1 % Neutrophils (%) (Auto) 76.5 40.0-77.0 % Lymphocytes (%) (Auto) 16.0 L 21.0-51.0 % Monocytes (%) (Auto) 5.1 3.0-13.0 % Eosinophils (%) (Auto) 1.6 0.0-8.0 % Basophils (%) (Auto) 0.2 0.0-5.0 % Neutrophils # (Auto) 4.9 1.8-7.7 K/uL Lymphocytes # (Auto) 1.0 1.0-4.8 K/uL Monocytes # (Auto) 0.3 0.1-1.0 K/uL Eosinophils # (Auto) 0.10 0.00-0.70 K/uL Basophils # (Auto) 0.01 0.00-0.20 K/uL Absolute Immature Granulocyte (auto 0.04 0-1 K/uL Nucleated Red Blood Cells 0.0 0.0-0.19 % Sodium Level 136 136-145 mmol/L Potassium Level 4.3 3.5-5.1 mmol/L Chloride Level 105 101-111 mmol/L Carbon Dioxide Level 27 21-32 mmol/L Blood Urea Nitrogen 23 H 7-18 mg/dL Creatinine 1.1 H 0.5-1.0 mg/dL Glomerular Filtration Rate Calc 56 >90 mL/min Random Glucose 139 H 70-105 mg/dL Total Calcium 8.5 8.5-10.1 mg/dL Phosphorus Level 3.0 2.5-4.9 mg/dL Magnesium Level 1.90 1.80-2.40 mg/dL Total Bilirubin 1.1 H 0.2-1.0 mg/dL Direct Bilirubin 0.2 0.0-0.3 mg/dL Aspartate Amino Transf (AST/SGOT) 34 10-37 U/L Alanine Aminotransferase (ALT/SGPT) 82 H 12-78 U/L Alkaline Phosphatase 132 50-136 U/L Total Creatine Kinase 53 21-232 U/L Troponin I High Sensitivity 12.4 4-50 ng/L Total Protein 8.3 6.0-8.3 g/dL Albumin 4.3 3.5-5.0 g/dL Lipase 18 16-77 U/L Urine Color YELLOW YELLOW Urine Appearance CLOUDY H CLEAR Urine pH 5.5 5.0-8.0 Urine Specific [place] 1.024 1.001-1.031 Urine Protein 20 H NEGATIVE mg/dL Urine Glucose (UA) NEGATIVE NEGATIVE mg/dL Urine Ketones NEGATIVE NEGATIVE mg/dL Urine Occult Blood NEGATIVE NEGATIVE Urine Nitrate 2+ H NEGATIVE Urine Bilirubin NEGATIVE NEGATIVE mg/dL Urine Urobilinogen 0.2 0.2-1.0 mg/dL Urine Leukocyte Esterase 250 H NEGATIVE Kwaku/uL Urine RBC 6-10 H 0-1 /HPF Urine WBC 26-50 H 0-1 /HPF Urine Squamous Epithelial Cells MOD 0-2 /HPF Urine Other Crystals (Auto) 1 None Seen /HPF Urine Bacteria MANY None Seen /HPF Urine Hyaline Casts 6-10 H 0-1 /LPF /LPF Urine Osmolality 739 50-1200 mOsm/kg Urine Random Creatinine 227.83 H 30-135 mg/dL Urine Random Sodium 86 40-220 mmol/l Current Medications Medications (Trade) Dose Ordered Sig/Jj Route PRN Reason Start Time Stop Time Status Last Admin Dose Admin Acetaminophen (TYLenol 325MG TAB) 650 mg Q6H PRN PO TEMPERATURE GREATER THAN 101.5 04/26/24 22:00 05/26/24 21:59 Acetaminophen (TYLenol 650MG SUPPOSITORY) 650 mg Q6H PRN RC MILD PAIN (1-3) 04/26/24 22:00 05/26/24 21:59 Ceftriaxone Sodium (ROCEphine 1G INJ) 1 gm ONCE IVPB 04/26/24 18:30 04/26/24 22:30 DC 04/26/24 19:21 1 GM Ceftriaxone Sodium (ROCEphine 1G INJ) 1 gm Q24H IVPB 04/27/24 09:30 05/07/24 09:29 04/28/24 08:53 1 GM Heparin Sodium (Porcine) (HEParin 5,000 UNIT VIAL) 5,000 unit BID SQ 04/27/24 09:00 05/27/24 08:59 04/28/24 08:50 5,000 UNIT Hydralazine HCl (APRESOLine 20MG INJ) 10 mg Q6H PRN IV For:SBP above 160;DBP above 90 04/26/24 22:00 05/26/24 21:59 Lactated Ringer's 1,000 ml @ 125 mls/hr Q8H IV 04/26/24 22:00 05/26/24 21:59 04/26/24 22:01 125 MLS/HR Magnesium Oxide (Mag-Ox) 400 mg ONCE PO 04/26/24 18:00 04/26/24 22:00 DC 04/26/24 19:21 400 MG Magnesium Sulfate 50 ml @ 0 mls/hr PROTOCOL PRN IV h 04/26/24 22:00 05/26/24 21:59 Morphine Sulfate (morPHINE 2MG SYG) 2 mg Q4H PRN IVP SEVERE PAIN (7-10) 04/26/24 22:00 05/03/24 21:59 Morphine Sulfate (morPHINE 4MG SYG) 4 mg ONCE IVP 04/26/24 17:00 04/26/24 21:00 DC 04/26/24 17:36 4 MG Ondansetron HCl (zoFRAN 4MG INJ) 4 mg ONCE IVP 04/26/24 17:00 04/26/24 21:00 DC 04/26/24 17:36 4 MG Ondansetron HCl (zoFRAN 4MG INJ) 4 mg ONCE IVP 04/26/24 19:30 04/26/24 22:30 DC 04/26/24 19:37 4 MG Pantoprazole Sodium (PROTonix 40MG INJ) 40 mg ONCE IVP 04/26/24 17:00 04/26/24 21:00 DC 04/26/24 17:36 40 MG Pantoprazole Sodium (PROTonix 40MG INJ) 40 mg Q24H IV 04/27/24 09:00 05/27/24 08:59 04/28/24 08:53 40 MG Sodium Chloride 1,000 ml @ 0 mls/hr ONCE IV 04/26/24 17:00 04/26/24 21:00 DC 04/26/24 17:36 1,000 MLS/HR DIAGNOSTICS / RADIOLOGY: [ ] ASSESSMENT: Enterocolitis, POA, by CT on 04/26/2024 Leukocytosis Urinary tract infection, POA Hypomagnesemia, POA PEPE prerenal, POA PLAN: [ ] Admit: Medical floor condition: Fair Status: Full code IVF: LR decrease rate to 75 mL/hour Consultants: None Antibiotics: Rocephin1 g every 24 hours Test: C diff negative we will start Imodium t.i.d. PRN Labs cbc, cmp, mag+ Replace electrolytes as needed as per protocol to keep potassium above 4.0 magne sium 2.0. Supportive measures: DVT ppx, GI ppx all questions answered Supervising MD: Dr. Dodie anderson/mera This document was generated in part using voice recognition software, occasional wrong word or sound alike substitutions may have occurred due to the inherent limitations of voice recognition software. Read the chart carefully and recognize using context, where the substitutions have occurred. Although every effort was made to edit the content, bone char kiln tender and typing errors may occur ATTESTATION BY PHYSICIAN I have seen and examined the patient. I reviewed the documentation, medical decision making, and treatment plan as noted by the mid-level provider above. I agree with the findings and plan of care. Nahun Mueller MD, ELIZABETH NP Apr 28, 2024 09:32 NAHUN MUELLER MD Apr 28, 2024 16:12
[2024-04-28] MEDS ORDERED: CEFD300C3 PO (11:31)
[2024-04-28] MEDS: DIPHENOXYLATE HCL/ATROPINE 2.5/0.025 MG TAB PO ONE (13:35)
[2024-04-28] MEDS: SERTraline HCL 50 MG TABLET PO SCH (20:38)
[2024-04-29] VITALS: BP 114/53; PULSE 67; RESP 20; TEMP 98.3
[2024-04-29] MEDS: LOPERAMIDE 1 MG/7.5 ML UDCUP PO PRN (01:33)
[2024-04-29 04:00] VITALS: BP 123/55; PULSE 74; RESP 20; TEMP 98.5
[2024-04-29 08:00] VITALS: BP 115/56; PULSE 63; RESP 18; TEMP 98.2
[2024-04-29 08:20] VITALS: O2SAT 97
[2024-04-29] MEDS ORDERED: PoTASSium chloRIDE 20MEQ ER 20 MEQ ERTAB PO PRN (08:30)
[2024-04-29] MEDS ORDERED: PoTASSium chloRIDE 20MEQ/100ML 100 ML IV PRN (08:30)
[2024-04-29] MEDS ORDERED: PoTASSium chl 10% ELIXIR 20MEQ 20 MEQ/15 ML UDCUP PO PRN (08:30)
--- NOTE | 2024-04-29 08:30 | DS ---
Discharge Summary Hospital Course Summary: This is a 64-year-old female that presents in ER with chief complaints of diarrhea was admitted on 04/26/2024. This morning she reports she continues we will collect stool PCR. No fevers no chills continues on IV fluids. 04/28/2024 diarrhea was negative for C diff. continues with diarrhea we will start her on Imodium. Patient renal function improved urine cultures in process continue with empiric antibiotics patient reports no chest pain or shortness for breath. 04/29/2024 patient is improving one time episode of diarrhea. Patient will be discharged on oral antibiotics for E coli in the urine in probiotics for 14 days patient also complains of GERD we will be placed on Pepcid 20 mg daily advised patient to follow-up with her PCP 2-3 days we will need a referral for GI for possible EGD and colonoscopy. She verbalized understanding she is hemodynamically stable for discharge Procedure(s): RUN DATE: 04/29/24 [facility] [address] RUN TIME: [phone] [address], [place] [address] [facility] # [id number] Distributor Cleaner: Germaine Luevano DO Specimen Report PATIENT: IRAM STOCKTON ACCT: [id number] LOC: [facility] U: [id number] AGE/SX: 64/F ROOM: 330 RE04/26/[address]: JOHN HARO MD : 1960 BED: 1 DIS: STATUS: ADM IN TLOC: SPEC: [id number] YOANNA: 04/26/24 STATUS: JENNIFER REQ: [id number] RECD: 04/27/[address]: PEG HARRIS SOURCE: [facility] [place] ENTR: 04/27/[address]: TIEN CHONG MD SPDESC: CLEAN CAT NONE ORDERED: AERO ID & SENS Procedure Result Silvina Date-Time AEROBIC ID & SENSITIVITIES Final 04/29/24-0711 MRL COLONY DESCRIPTION: DAY 1: COLONY COUNT: >100,000 CFU/ML GRAM NEGATIVE RODS IDENTIFICATION AND SENSITIVITY TO FOLLOW ESCHERICHIA COLI E COLI M.I.C. RX --------- ---- AMPICILLIN >16 R AZTREONAM <=4 S CEFAZOLIN 4 I CEFTAZIDIME/AVIBACTAM <=8 S CEFTRIAXONE <=1 S GENTAMICIN <=2 S LEVOFLOXACIN <=0.5 S NITROFURANTOIN <=32 S MEROPENEM <=1 S PIPERACILLIN/TAZOBACTAM <=8 S TRIMETHOPRIM/SUFLAMETHOXAZOLE >2/38 R @ [facility] Test Performed at: [facility] [address], [place], [place] Medical Coal Cutting Machine Operator: Tutu Herron D.O. END OF REPORT Assessment/Plan: discharged dx's; Enterocolitis, POA, by CT on 04/26/2024 acute gastroenteritis resolved suspecting C diff: ruled out POA Leukocytosis resolved Urinary tract infection gram negative Ecoli POA Hypomagnesemia, POA corrected PEPE prerenal, POA resolved PLAN: [ ] ADMISSION DATE: 04/26/24 DISCHARGE DATE: 04/29/2024 DISPOSITION: Home CONDITION: Stable ACID WASH OPERATOR(S): None FOLLOW UP APPOINTMENT(S): PCP Dr Sophia Markham 2-3 days PROCEDURES: none IMAGING (S) report attached to summary : MICROBIOLOGY: report attached to summary; urine cultures Gram-negative E coli ACTIVITY: Ad lulu HOME MEDICATIONS remain the same CHANGES ON HOME MEDICATIONS none NEW MEDICATIONS cefdinir 300 mg p.o. b.i.d. times five days TEACHING: Instructed patient to complete full cycle of antibiotics adverse reactions and side effects of medication was discussed. Emergency instructions: The patient was instructed to present to the nearest Emergency Department or call 911 should their symptoms return or worsen. Home Medications: Reported Medications Sertraline HCl (Sertraline HCl) 100 Mg Tablet, 1 TAB PO HS for 30 Days, #30 TAB 0 Refills 04/26/24 Metformin HCl (Metformin HCl) 500 Mg Tablet, 1 TAB PO DAILY for 30 Days, #60 TAB 0 Refills 04/26/24 Atorvastatin Calcium (Atorvastatin Calcium) 20 Mg Tablet, 1 TAB PO DAILY for 30 Days, #30 TAB 0 Refills 04/26/24 New Medications: Cefdinir (Cefdinir) 300 Mg Capsule 1 CAP PO BID for 5 Days, #10 CAP 0 Refills Famotidine (Famotidine) 20 Mg Tablet 20 MG PO DAILY for 30 Days, #30 TAB Saccharomyces Boulardii (Probiotic) 250 Mg Capsule 1 CAP PO DAILY for 14 Days, #14 CAP 0 Refills Continued Medications: Atorvastatin Calcium (Atorvastatin Calcium) 20 Mg Tablet 1 TAB PO DAILY for 30 Days, #30 TAB 0 Refills Metformin HCl (Metformin HCl) 500 Mg Tablet 1 TAB PO DAILY for 30 Days, #60 TAB 0 Refills Sertraline HCl (Sertraline HCl) 100 Mg Tablet 1 TAB PO HS for 30 Days, #30 TAB 0 Refills ATTESTATION BY PHYSICIAN I have seen and examined the patient. I reviewed the documentation, medical decision making, and treatment plan as noted by the mid-level provider above. I agree with the findings and plan of care. KEENAN SHAW MD, ELIZABETH NP Apr 29, 2024 08:30
[2024-04-29 09:00] LABS: BASOPHILS # (AUTO) 0.01 K/uL (0.00-0.20); BASOPHILS % (AUTO) 0.3 % (0.0-5.0); EOSINOPHILS # (AUTO) 0.03 K/uL (0.00-0.70); EOSINOPHILS % (AUTO) 0.8 % (0.0-8.0); HEMATOCRIT 36.2 % (36-48); IMMATURE GRANULOCYTE ABSOLUTE 0.03 K/uL (0-1); LYMPHOCYTES # (AUTO) 1.5 K/uL (1.0-4.8); LYMPHOCYTES % (AUTO) 41.3 % (21.0-51.0); MEAN CORPUSCULAR HEMOGLOBIN 29.3 pg (27.0-33.0); MEAN CORPUSCULAR HGB CONC 32.6 g/dL (32.0-36.0); MEAN CORPUSCULAR VOLUME 89.8 fL (79-99); MONOCYTES # (AUTO) 0.3 K/uL (0.1-1.0); MONOCYTES % (AUTO) 7.9 % (3.0-13.0); NEUTROPHILS # (AUTO) 1.8 K/uL (1.8-7.7); NEUTROPHILS % (AUTO) 48.9 % (40.0-77.0); PLATELET COUNT (AUTO) 130 K/uL (130-400); RED BLOOD CELL COUNT(AUTO) 4.03 MIL/uL (4.00-5.50); RED CELL DISTRIBUTION WIDTH 12.7 % (11.0-15.5); WHITE BLOOD COUNT (AUTO) 3.7 K/uL (4.8-10.8)
[2024-04-29 09:10] LABS: CREATININE 0.9 mg/dL (0.5-1.0); POTASSIUM 4.1 mmol/L (3.5-5.1)
[2024-04-29 09:14] LABS: ALBUMIN 2.9 g/dL (3.5-5.0); BILIRUBIN,TOTAL 0.6 mg/dL (0.2-1.0); MAGNESIUM 1.6 mg/dL (1.80-2.40); TOTAL PROTEIN, SERUM 5.9 g/dL (6.0-8.3)
[2024-04-29] MEDS ORDERED: SACC250C9 PO (11:49)
[2024-04-29] MEDS ORDERED: FAMO20TA8 PO (11:49)
[2024-04-29 12:00] VITALS: BP 127/58; PULSE 65; RESP 18; TEMP 98.1
--- NOTE | 2024-04-29 12:12 | DS ---
Discharge Summary Assessment/Plan: discharged Dx's; Enterocolitis, POA, by CT on 04/26/2024 acute gastroenteritis resolved suspecting C diff: ruled out POA Leukocytosis resolved Urinary tract infection gram negative Ecoli POA Hypomagnesemia, POA corrected PEPE prerenal, POA resolved PLAN: [ ] ADMISSION DATE: 04/26/24 DISCHARGE DATE: 04/29/2024 DISPOSITION: Home CONDITION: Stable SOFTWARE INTERN(S): None FOLLOW UP APPOINTMENT(S): PCP Dr Sophia Markham 2-3 days referral for GI PROCEDURES: none IMAGING (S) report attached to summary : MICROBIOLOGY: report attached to summary; urine cultures Gram-negative E coli ACTIVITY: Ad lulu HOME MEDICATIONS remain the same CHANGES ON HOME MEDICATIONS none NEW MEDICATIONS cefdinir 300 mg p.o. b.i.d. times five days probiotic 250 mg po daily x14 days and pepcid 20 mg po daily TEACHING: Instructed patient to complete full cycle of antibiotics adverse reactions and side effects of medication was discussed. Emergency instructions: The patient was instructed to present to the nearest Emergency Department or call 911 should their symptoms return or worsen. Home Medications: Reported Medications Sertraline HCl (Sertraline HCl) 100 Mg Tablet, 1 TAB PO HS for 30 Days, #30 TAB 0 Refills 04/26/24 Metformin HCl (Metformin HCl) 500 Mg Tablet, 1 TAB PO DAILY for 30 Days, #60 TAB 0 Refills 04/26/24 Atorvastatin Calcium (Atorvastatin Calcium) 20 Mg Tablet, 1 TAB PO DAILY for 30 Days, #30 TAB 0 Refills 04/26/24 Time spent arranging discharge: 31-60 minutes ATTESTATION BY PHYSICIAN I have seen and examined the patient. I reviewed the documentation, medical decision making, and treatment plan as noted by the mid-level provider above. I agree with the findings and plan of care. KEENAN SHAW MD, ELIZABETH NP Apr 29, 2024 12:12
[2024-04-29] MEDS: MAGNESIUM 2GM PREMIX 50ML 50 ML IV PRN (12:44)
--- NOTE | 2024-04-29 18:30 | NUR ---
Discharge note Patient was taken downstairs via wheelchair for discharge. She was in no distress, all questions answered.
[2024-04-29] MEDS ORDERED: atorVAStatin 20 MG TABLET PO SCH (21:00)
[2024-04-30 16:11] LABS: C DIFFICILE TOXIN A/B Not Detected (Not Detected); ENTEROAGGREGATIVE ECOLI Not Detected (Not Detected); GIARDIA LAMBLIA Not Detected (Not Detected); PLESIOMONAS SHIGELOIDES Not Detected (Not Detected); SAPOVIRUS Not Detected (Not Detected); SHIGELLA/ENTEROINVASIVE E COLI Not Detected (Not Detected); VIBRIO Not Detected (Not Detected); VIBRIO CHOLERAE Not Detected (Not Detected)
== END 2024-04-29 18:30 | disposition home or self-care (01) | DRG 392 ==
LOC: EDH 16:19 → EDHIP 20:53 → 3AH 23:50
PROVIDERS: ADMIT Internal Medicine; ATTEND Internal Medicine
DX: K52.9 Noninfective gastroenteritis and colitis, unspecified (principal); N39.0 Urinary tract infection, site not specified; N17.9 Acute kidney failure, unspecified; E83.42 Hypomagnesemia; B96.20 Unspecified Escherichia coli [E. coli] as the cause of diseases classified elsewhere; E11.9 Type 2 diabetes mellitus without complications; E78.00 Pure hypercholesterolemia, unspecified; I10 Essential (primary) hypertension; K21.9 Gastro-esophageal reflux disease without esophagitis; F32.A Depression, unspecified; K76.0 Fatty (change of) liver, not elsewhere classified; Z51.5 Encounter for palliative care; Z56.0 Unemployment, unspecified; Z90.710 Acquired absence of both cervix and uterus; Z79.899 Other long term (current) drug therapy
CPT/HCPCS: 36415; 74176; 80048; 80053; 80076; 81001; 82550; 82570; 83690; 83735; 83935; 84100; 84300; 84484; 85025; 87086; 87177; 87186; 87324; 87507; 93005; 96361; 96374; 96375; 99285; G0378; J0696; J1644; J2270; J2405; J2470; J3475; J7030; J7120